=== PATIENT | female | born 1940 | race Caucasian/White ===

== ENCOUNTER 2019-05-10 09:32 | Day surgery (SDC) | payer MEDICARE, OTHER ==
[~2019-05-10] VITALS: Ht 152.4 cm; Wt 67.4 kg
[~2019-05-10 09:32] MED LIST: ATEN-51 PO; ATIVAN; ATORVASTATIN; MEMANTINE; MULTIVITAMINS; OMEP20CA17 PO; SIMV40TA19 PO; TURMERIC
[2019-05-10 10:13] VITALS: Ht 152.4 cm; Wt 67.4 kg
[2019-05-10] MEDS ORDERED: PROPOFOL 20 ML ONE (10:21)
[2019-05-10 10:26] VITALS: BP 124/60; PULSE 76; RESP 21
[2019-05-10 11:59] VITALS: BP 124/60; RESP 20
== END 2019-05-10 14:25 | disposition home or self-care (01) ==
LOC: GIL 09:32
PROVIDERS: ATTEND Internal Medicine Gastroenterology
DX: R13.10 Dysphagia, unspecified (principal); K44.9 Diaphragmatic hernia without obstruction or gangrene; K29.50 Unspecified chronic gastritis without bleeding; G30.9 Alzheimer's disease, unspecified; F02.80 Dementia in other diseases classified elsewhere, unspecified severity, without behavioral disturbance, psychotic disturbance, mood disturbance, and anxiety
CPT/HCPCS: 88305; 88312